=== PATIENT | male | born 1955 | race Caucasian/White ===

== ENCOUNTER 2025-05-08 12:13 | Emergency (ER) | payer MEDICARE, SELFPAY ==
[2025-05-08 13:11] VITALS: BP 138/61; PULSE 88; RESP 18; TEMP 37.7; O2SAT 96; BMI 23.0
--- NOTE | 2025-05-08 13:18 | ED.SKABFB ---
HPI - Skin/Abscess/Foreign Bdy <Arlette Dorado PA-C - Last Filed: 05/08/25 21:25> General Chief complaint: Skin/Abscess/Foreign Body Stated complaint: sent from [facility] for rash, fever, no appetite Time Seen by Provider: 05/08/25 13:17 Source: patient Mode of arrival: Ambulatory Limitations: no limitations History of Present Illness HPI narrative: This is a 69-year-old patient with a history of asthma which he reports as adult onset, presenting to the ER after he was sent by walk-in clinic with concern for a nearly full body pruritic rash and fevers. Patient and his state that he developed a mild subtle rash on his calves about a week ago. They thought little of this, states she thought it could have been heat rash as they bicycle a lot and he sometimes gets mild rashes on his lower legs. Then 2 days ago the rash started to spread and yesterday became quite prominent affecting his lower extremities/thighs and by this morning had spread to his chest and back. He states the rash is very itchy but he is doing his best not to scratch it. He states that for the last couple of days he is felt extremely fatigued and generally ?unwell?. states that he has had no appetite for about the past day. He endorses he has been having some nausea but no vomiting or diarrhea. Patient notes in the last couple of days as they have been visiting the area he has been crabbing with friends and states he has gotten a lot of salt water on his legs and patient states that he has also eaten crab multiple times recently but not for a the last couple of days. He acknowledges that last year when he was up here crabbiing he also had a period where he was feeling similarly unwell but at that time did not have a rash. They also note that he went about 2 years without eating any gluten due to concern that he might have a gluten allergy and in the past week he just began eating foods with gluten again. Additionally patient notes that he has had some irritation/discomfort of his esophagus the last couple of nights which he attributes to swallowing his vitamin-C pill without water in the evening before bed. He also states his throat has been a little sore the last couple of days and acknowledges he had strep infection ?a lot? when he was younger. He also states that he has had a mild cough which is chronic for him. And that he changed from Symbicort medication to Wixela generic about 4-6 weeks ago due to an insurance change. Additionally patient notes that about a month ago and again in the past week or so he is noticed if he is leaning forward doing [employer] project he sometimes feels like his chest feels ?congested? and it affects his breathing. Last night patient developed high fevers up to 102.2, combined with the worsening rash this morning this is what prompted them to seek evaluation. Patient endorses he already takes a antihistamine medication that is a generic version of Zyrtec on a daily basis. He notes he has had allergy testing done previously with a full panel and no allergies were found. He has no known allergies to shellfish/crustaceans or other foods. Patient denies other symptoms complaints or concerns including shortness of breath, wheezing, diarrhea, vomiting, abdominal pain, chills, syncope, throat swelling or difficulty swallowing. Related Data Home Medications ?Medication ?Instructions ?Recorded ?Confirmed albuterol sulfate 90 mcg/actuation 2 puff inhalation Q4H PRN wheezing 05/08/25 05/08/25 aerosol inhaler fluticasone 250 mcg-salmeterol 50 1 ea inhalation BID 05/08/25 05/08/25 mcg/dose blistr powdr for inhalation (Wixela Inhub) rosuvastatin 10 mg tablet 10 mg PO DAILY 05/08/25 05/08/25 rosuvastatin 5 mg tablet 5 mg PO DAILY 05/08/25 05/08/25 simethicone 125 mg chewable tablet mg PO 05/08/25 05/08/25 Previous Rx's ?Medication ?Instructions ?Recorded cephalexin 500 mg capsule 500 mg PO TID dermatitis/infection 05/08/25 7 days #21 caps epinephrine 0.3 mg/0.3 mL 0.3 mg (0.3 mL) IM Q5-15M PRN 05/08/25 injection, auto-injector anaphylaxis #2 ea prednisone 20 mg tablet 40 mg (2 x 20 mg) PO DAILY 05/08/25 Allergic reaction 5 days #10 tabs Allergies Allergy/AdvReac Type Severity Reaction Status Date / Time erythromycin base Allergy GI upset Verified 05/08/25 13:11 Review of Systems <Arlette Dorado PA-C - Last Filed: 05/08/25 21:25> Review of Systems Narrative: See HPI Patient History <Arlette Dorado PA-C - Last Filed: 05/08/25 21:25> Social History Smoking Status: Former smoker Smoking Status: Former smoker Exam <Arlette Dorado PA-C - Last Filed: 05/08/25 21:25> Narrative Exam Narrative: GENERAL: [69] year old patient appears stated age. Well-developed patient, in mild distress. Fatigued, unwell appearing. HEAD: Atraumatic. Normocephalic. EYES: There is very subtle edema present around patient's lateral eyes. Pupils equal round and reactive. Extraocular motions intact. No scleral icterus. No injection or drainage. ENT: Nose without bleeding, purulent drainage. Throat with moderate erythema with mild edema of the uvula, without tonsillar hypertrophy or exudate. Airway patent no angioedema noted on initial exam. No lymphadenopathy noted. NECK: Trachea midline. Non tender. No lymphadenopathy noted. CARDIOVASCULAR: Regular rate and rhythm without murmurs, gallops, or rubs. RESPIRATORY: Clear to auscultation. Breath sounds equal bilaterally. No wheezes, rales, or rhonchi. GASTROINTESTINAL: See skin Abdomen soft, non-tender, nondistended. EXTREMITIES: See skin No edema or joint tenderness. BACK: See skin Nontender without deformity or crepitance. No flank tenderness. NEURO: AOx3. SKIN: There is a near global scattered maculopapular brightly erythematous rash with patchy areas of lesions affecting the anterior and posterior thighs, they anterior posterior thorax largely sparing the arms and sparing the palms and soles as well as the face. There is no blistering present. Lesions are blanching. No petechia. They are pruritic, nontender, warm to the touch. No other rash or erythema of visible areas Initial Vital Signs Initial Vital Signs: Vital Signs Temperature 100 F H 05/08/25 13:11 Pulse Rate 88 05/08/25 13:11 Respiratory Rate 18 05/08/25 13:11 Blood Pressure 138/61 05/08/25 13:11 Pulse Oximetry 96 05/08/25 13:11 Oxygen Delivery Method Room Air 05/08/25 13:11 <Seferino Rico MD - Last Filed: 05/09/25 15:19> Initial Vital Signs Initial Vital Signs: Vital Signs Temperature 100 F H 05/08/25 13:11 Pulse Rate 88 05/08/25 13:11 Respiratory Rate 18 05/08/25 13:11 Blood Pressure 138/61 05/08/25 13:11 Pulse Oximetry 96 05/08/25 13:11 Oxygen Delivery Method Room Air 05/08/25 13:11 Course <Arlette Dorado PA-C - Last Filed: 05/08/25 21:25> Course Course Narrative: Did discuss this patient with the attending physician Dr. Rico; we reviewed labs, imaging and potential etiologies of his illness including discussion of possibility of very mild dress syndrome given his eosinophilia and very mild facial edema. Etiology of patient's symptoms is not entirely clear. Based on his normal vitals and strong possibility that his feeling unwell recently could be related in part to hyponatremia. At this point no indication for admission. We will treat with antihistamines and prednisone for symptomatic control have him follow up closely with PCP and seek re-evaluation if he is not improving or worsening. 1616 Patient did develop a fever again during his ER stay discussed patient again by phone with the attending who agrees with plan to treat with antibiotics in addition to the above plan. 1700 Orders Ordered: Discontinued Medications Acetaminophen (Acetaminophen 325 Mg Tablet) 975 mg PO NOW ONE Stop: 05/08/25 16:47 Last Admin: 05/08/25 16:48 Dose: 975 mg Documented By: DANNA Famotidine (Famotidine 20 Mg/2 Ml Vial) 20 mg IV NOW MANE Last Admin: 05/08/25 17:13 Dose: 20 mg Documented By: DANNA Lactated Ringer's (Lactated Ringers) 500 mls @ 1,000 mls/hr IV BOLUS ONE Stop: 05/08/25 15:17 Last Infusion: 05/08/25 15:40 Dose: Infused Documented By: Admin: 05/08/25 15:11 Dose: 1,000 mls/hr Documented By: DANNA Ondansetron HCl (Ondansetron 4 Mg/2 Ml Inj) 4 mg IV NOW ONE Stop: 05/08/25 14:57 Last Admin: 05/08/25 16:53 Dose: Not Given Documented By: DANNA Prednisone (Prednisone 20 Mg Tablet) 40 mg PO NOW ONE Stop: 05/08/25 16:58 Last Admin: 05/08/25 17:13 Dose: 40 mg Documented By: DANNA Vital Signs Vital signs: Vital Signs - 8 hr 05/08/25 15:39 05/08/25 16:29 05/08/25 18:21 Temperature 101.8 F H 100.2 F H Pulse Rate 89 90 88 Respiratory Rate 18 16 16 Blood Pressure 127/68 138/83 112/55 L Pulse Oximetry 98 96 98 Oxygen Delivery Method Room Air Room Air Room Air <Seferino Rico MD - Last Filed: 05/09/25 15:19> Orders Ordered: Discontinued Medications Acetaminophen (Acetaminophen 325 Mg Tablet) 975 mg PO NOW ONE Stop: 05/08/25 16:47 Last Admin: 05/08/25 16:48 Dose: 975 mg Documented By: DANNA Famotidine (Famotidine 20 Mg/2 Ml Vial) 20 mg IV NOW MANE Last Admin: 05/08/25 17:13 Dose: 20 mg Documented By: DANNA Lactated Ringer's (Lactated Ringers) 500 mls @ 1,000 mls/hr IV BOLUS ONE Stop: 05/08/25 15:17 Last Infusion: 05/08/25 15:40 Dose: Infused Documented By: Admin: 05/08/25 15:11 Dose: 1,000 mls/hr Documented By: DANNA Ondansetron HCl (Ondansetron 4 Mg/2 Ml Inj) 4 mg IV NOW ONE Stop: 05/08/25 14:57 Last Admin: 05/08/25 16:53 Dose: Not Given Documented By: DANNA Prednisone (Prednisone 20 Mg Tablet) 40 mg PO NOW ONE Stop: 05/08/25 16:58 Last Admin: 05/08/25 17:13 Dose: 40 mg Documented By: DANNA Vital Signs Vital signs: Vital Signs - 8 hr 05/08/25 15:39 05/08/25 16:29 05/08/25 18:21 Temperature 101.8 F H 100.2 F H Pulse Rate 89 90 88 Respiratory Rate 18 16 16 Blood Pressure 127/68 138/83 112/55 L Pulse Oximetry 98 96 98 Oxygen Delivery Method Room Air Room Air Room Air MDM - Skin/Abscess/Foreign Bdy <Arlette Dorado PA-C - Last Filed: 05/08/25 21:25> Differential Diagnosis Differential diagnosis: Likely viral exanthem, urticaria, allergic reaction to drug, contact dermatitis and other (allergic reaction to food, hyponatremia, eosinophilia) Lab Data Attestation: I reviewed the patient's lab results. Lab results narrative: Patient has an eosinophilia with low lymphocytes. No notable leukocytosis. Sodium is moderately low at 130. Lactate is unremarkable. ALT is very slightly elevated at 63. Viral testing for COVID flu A/B and RSV returned negative. As does rapid strep test. Platelets within normal limits. BNP is slightly elevated at 235. Troponin is not elevated. There is some proteinuria but no evidence of UTI. 05/08/25 14:52 05/08/25 14:52 Labs: Lab Results 05/08/25 05/08/25 05/08/25 Range/Units 14:52 15:07 15:19 WBC 11.6 H (4.5-11.0) X10^3/uL RBC 4.45 L (4.5-5.9) X10^6/uL Hgb 14.4 (13.5-17.5) g/dL Hct 42.1 (41-53) % MCV 94.6 (80-100) fL MCH 32.4 (26-34) PG MCHC 34.3 (30-36) % RDW 14.8 (11.6-14.8) % Plt Count 216 (150-400) X10^3/uL Neut % (Auto) 65.8 (50-75) % Lymph % (Auto) 8.9 L (25-40) % [facility] % (Auto) 7.5 (3-14) % Eos % (Auto) 17.5 H (2-4) % Baso % (Auto) 0.3 (0-2) % Neut # (Auto) 7600 H (7675-2457) /uL Lymph # (Auto) 1000 L (1190-2554) /uL [facility] # (Auto) 900 (0-900) /uL Eos # (Auto) 2000 H (0-450) /uL Baso # (Auto) 0 (0-100) /uL APTT 28 (25.1-36.5) SECONDS Sodium 130 L (137-145) mmol/L Potassium 4.6 (3.4-5.1) mmol/L Chloride 95 L (98-107) mmol/L Carbon Dioxide 28 (22-32) mmol/L BUN 16 (9-20) mg/dL Creatinine 0.92 (0.66-1.25) mg/dL Estimated GFR > 60 (>60) mL/min BUN/Creatinine Ratio 17.4 (6-22) Glucose 113 H (70-99) mg/dL Lactate 1.3 (0.7-2.1) mmol/L Calcium 8.7 (8.4-10.2) mg/dL Total Bilirubin 0.7 (0.2-1.3) mg/dL AST 46 (17-59) IU/L ALT 63 H (<50) IU/L Alkaline Phosphatase 117 (38-126) U/L Total Creatine Kinase 33 L (55-170) U/L Troponin I < 0.012 (0.01-0.034) ng/mL NT-Pro-B Natriuret Pep 235 H (<125) pg/mL Total Protein 7.3 (6.3-8.2) g/dL Albumin 4.0 (3.5-5.0) g/dL Globulin 3.3 (1.7-4.1) g/dL Albumin/Globulin Ratio 1.2 (1.0-2.8) Procalcitonin 0.203 (<0.5) ng/mL Ur Bilirubin Confirm Negative (Negative) Urine RBC 0-1/hpf (0-5/HPF) Urine WBC 0-1/hpf (0-5/HPF) Ur Squamous Epith Cells 0-1 /hpf (0-5/HPF) Urine Bacteria Occasional (0-1) (None) Urine Mucus 3+ H (Negative) Ur Culture Indicated? Cult not indicated Vol Urine Centrifuged 10ml (spun) SARS-CoV-2 (PCR) Negative (Negative) Influenza A (RT-PCR) Flu a negative (NEGATIVE) Influenza B (RT-PCR) Flu b negative (NEGATIVE) RSV (PCR) Negative (Negative) Group A Strep (PCR) Negative (Negative) Urine Dip Bedside Urine Glucose Negative Bedside Urine Bilirubin + 1 Bedside Urine Ketone + 15 Urine Specific [place] 1.020 Bedside Urine Occult Blood - Negative Bedside Urine pH 6.0 Bedside Urine Protein ++ 100 Bedside Urine Urobilinogen - Negative Bedside Urine Nitrite - Negative Bedside Urine Leukocytes - Negative Esterase Imaging Data Chest x-ray: My Impression: Agree with Radiology interpretation Radiologist's Impression: [address] [id number] XRay Report Signed Patient: Gavino Adkins MR#: [id number] : 1955 Acct:[id number] Age/Sex: 69 / M Date of Service: 05/08/25 Loc: ED Accession Number: [id number] Procedure: XR chest 2V Ordering Provider: Arlette Dorado PA-C PROCEDURE: XR CHEST 2V INDICATIONS: chest congestion positional TECHNIQUE: 2 views of the chest were acquired. COMPARISON: None. FINDINGS: Surgical changes and devices: None. Lungs and pleura: An incomplete inspiratory result is noted, causing a crowded appearance to the lung markings. No focal infiltrates are seen. Mild generalized interstitial prominence can be seen. No pneumothorax or significant pleural effusions are seen. Mediastinum: Mediastinal contours are normal. Heart size is normal. Bones and chest wall: No suspicious bony abnormalities. Age-appropriate bony degenerative changes are seen. Soft tissues appear unremarkable. IMPRESSION: Low lung volumes with mild interstitial prominence. Artifact is suspected, although differential diagnosis includes mild pulmonary edema versus atypical/viral infection. Dictated by: Luke Driscoll M.D. on 05/08/2025 at 14:09 Approved by: Luke Driscoll M.D. on 05/08/2025 at 14:10 ECG Data Attestation: I personally reviewed and interpreted this ECG as follows: Interpretation: Heart rate 91, normal sinus rhythm--no ST elevation or depression noted. QTC 413 milliseconds; no ectopy. [facility] Narrative Medical decision making narrative: This ill appearing 69-year-old male with a history of asthma presented to the ER with concern for global rash worsening since yesterday and generalized fatigue/feeling unwell for 2 days. Multiple potential etiologies for patient's symptoms including viral illness, atypical allergic reaction/eosinophilic reaction, mild DRESS syndrome, contact dermatitis with bacterial infection. While he was not tachycardic or tachypneic, he presented ill-appearing and some concern initially for sepsis and a workup was pursued to include CBC CMP, lactate, urine, chest x-ray, cardiac labs, EKG, blood cultures, throat culture and rapid strep test, testing for common viruses. Patient did receive a fluid bolus initially. [place] slightly improved after this. He did have a hyponatremia with sodium of 130. Which possibly explains some of his recent fatigue. During the course of his ER stay he developed recurrent fever up to 102.2 which was treated with Tylenol successfully. Additionally he developed some mild edema of his upper lip only with no tongue swelling or swelling of the posterior oropharynx or respiratory symptoms/GI. Given duration of his complaint with rash developing up to 1 week ago, worsening yesterday and more severe this morning unlikely his symptoms represent a true anaphylactic reaction however given he has eosinophilia a near global skin rash and recent exposure to crab with report of previously feeling ill after eating it last year, as well as recent reintroduction of gluten to his diet after 2 years gluten free certainly atypical allergic reaction is highly likely. He does have some symptoms that could be consistent with mild DRESS syndrome however his only medication change was from Symbicort to Wixela approximately 4-6 weeks ago. This is not noted to be a medication that would typically triggered DRESS. Patient did not have an elevated lactate or notable leukocytosis. Did discuss the patient with the attending physician who agreed with plan for steroids, antihistamines. Ultimately decision to also prescribe antibiotics given patient's recurrence of fever. I think it is possible that patient's fever is 2nd to systemic reaction rather than infectious process however the rash on his body particularly of his size is brightly erythematous and possibly concerning for a bacterial infectious process. Patient was monitored in the ER as results returned and symptoms changed. He did receive prednisone 40 mg oral as well as famotidine 20 mg IV in addition to fluids. His chest x-ray was suspicious for artifact versus mild pulmonary edema or viral pneumonia. BNP was slightly elevated. Counseled the patient and his regarding monitoring for symptoms that would suggest anaphylaxis/severe allergic reaction. An EpiPen was prescribed today. Additionally counseled the patient regarding new or worsening symptoms including persistent/high fevers, worsening of the rash, developing blistering or sloughing skin, increasing fatigue or malaise, diarrhea/vomiting, confusion; and patient was advised to have a very low threshold for returning to the emergency department or calling 911 with new or persistent symptoms. Advised continue famotidine in addition to his regular Zyrtec generic. Consider Benadryl topical and or oral for itching symptoms/rash noting to use care for oral Benadryl as it can be sedating. Prescription for prednisone for 5 day course with initial 40mg admin in ED. Advised avoid all seafood/shellfish containing foods and all gluten foods for the time being as trigger for his symptoms is unclear and highly suspicious for an atypical allergic reaction. Recommend following up with PCP as well as allergy/embedded software developer Recommended fluid intake including electrolyte containing fluids such as Pedialyte as well as increasing food intake to work on improving his hyponatremia. Prescription for cephalexin due to concern for possible skin infection. Blood cultures pending and throat culture pending at time of discharge. Return precautions provided, follow-up plan discussed, all questions answered. <Seferino Rico MD - Last Filed: 05/09/25 15:19> Lab Data Labs: Lab Results 05/08/25 05/08/25 05/08/25 Range/Units 14:52 15:07 15:19 WBC 11.6 H (4.5-11.0) X10^3/uL RBC 4.45 L (4.5-5.9) X10^6/uL Hgb 14.4 (13.5-17.5) g/dL Hct 42.1 (41-53) % MCV 94.6 (80-100) fL MCH 32.4 (26-34) PG MCHC 34.3 (30-36) % RDW 14.8 (11.6-14.8) % Plt Count 216 (150-400) X10^3/uL Neut % (Auto) 65.8 (50-75) % Lymph % (Auto) 8.9 L (25-40) % [facility] % (Auto) 7.5 (3-14) % Eos % (Auto) 17.5 H (2-4) % Baso % (Auto) 0.3 (0-2) % Neut # (Auto) 7600 H (1240-4615) /uL Lymph # (Auto) 1000 L (8676-5586) /uL [facility] # (Auto) 900 (0-900) /uL Eos # (Auto) 2000 H (0-450) /uL Baso # (Auto) 0 (0-100) /uL APTT 28 (25.1-36.5) SECONDS Sodium 130 L (137-145) mmol/L Potassium 4.6 (3.4-5.1) mmol/L Chloride 95 L (98-107) mmol/L Carbon Dioxide 28 (22-32) mmol/L BUN 16 (9-20) mg/dL Creatinine 0.92 (0.66-1.25) mg/dL Estimated GFR > 60 (>60) mL/min BUN/Creatinine Ratio 17.4 (6-22) Glucose 113 H (70-99) mg/dL Lactate 1.3 (0.7-2.1) mmol/L Calcium 8.7 (8.4-10.2) mg/dL Total Bilirubin 0.7 (0.2-1.3) mg/dL AST 46 (17-59) IU/L ALT 63 H (<50) IU/L Alkaline Phosphatase 117 (38-126) U/L Total Creatine Kinase 33 L (55-170) U/L Troponin I < 0.012 (0.01-0.034) ng/mL NT-Pro-B Natriuret Pep 235 H (<125) pg/mL Total Protein 7.3 (6.3-8.2) g/dL Albumin 4.0 (3.5-5.0) g/dL Globulin 3.3 (1.7-4.1) g/dL Albumin/Globulin Ratio 1.2 (1.0-2.8) Procalcitonin 0.203 (<0.5) ng/mL Ur Bilirubin Confirm Negative (Negative) Urine RBC 0-1/hpf (0-5/HPF) Urine WBC 0-1/hpf (0-5/HPF) Ur Squamous Epith Cells 0-1 /hpf (0-5/HPF) Urine Bacteria Occasional (0-1) (None) Urine Mucus 3+ H (Negative) Ur Culture Indicated? Cult not indicated Vol Urine Centrifuged 10ml (spun) SARS-CoV-2 (PCR) Negative (Negative) Influenza A (RT-PCR) Flu a negative (NEGATIVE) Influenza B (RT-PCR) Flu b negative (NEGATIVE) RSV (PCR) Negative (Negative) Group A Strep (PCR) Negative (Negative) Urine Dip Bedside Urine Glucose Negative Bedside Urine Bilirubin + 1 Bedside Urine Ketone + 15 Urine Specific [place] 1.020 Bedside Urine Occult Blood - Negative Bedside Urine pH 6.0 Bedside Urine Protein ++ 100 Bedside Urine Urobilinogen - Negative Bedside Urine Nitrite - Negative Bedside Urine Leukocytes - Negative Esterase Discharge Plan Departure Patient Disposition: Home Clinical Impression: Rash, Hyponatremia Allergic reaction Qualifiers: Encounter type: initial encounter Qualified Code(s): T78.40XA - Allergy, unspecified, initial encounter Contact dermatitis Qualifiers: Contact dermatitis type: allergic Contact dermatitis trigger: unspecified trigger Qualified Code(s): L23.9 - Allergic contact dermatitis, unspecified cause Activity Restrictions/Additional Instructions: *You have been diagnosed with [allergic reaction, dermatitis/skin infection, hyponatremia ] *What to do: *Please continue to take your regular medications as directed. [2 ] New medication prescriptions sent to your pharmacy: [EpiPen prescription for anaphylaxis, prednisone anti-inflammatory] [ ] New medication written as a paper prescription [ ] No new medications given *Please follow up with your primary care provider in 2-3 days, call for an appointment. Let them know you were seen in the Emergency Department and that we ask that you be seen in follow up. We will electronically transmit a record of today's note if your PCP is in our system. You came in today feeling unwell with a rash that came on yesterday and worsened to cover much of your body. The rash is atypical appearing for an allergic reaction however I do believe after we gathered information that most likely your symptoms are largely due to a histamine reaction/allergic reaction. The source is not completely clear however you have recently been exposed to salt water, crab protein and also recently restarted eating gluten after multiple years off of gluten. You had some lip swelling develop while you were in the ER and you also had some swelling around your eyes. These are likely related to her allergic reaction. Based on the timing of your symptoms and the gradual progression over the last day your reaction does not appear to be a ?anaphylactic? reaction, however I did prescribe an epinephrine pen for you as I do think that there is a risk you could have an anaphylactic type reaction in the future if you are reexpose to your allergen trigger. You did change to a generic version of your inhaler medication about 4 weeks ago however I think this is probably unlikely to be the cause of your symptoms/less likely that you are having a medication allergic reaction. Your sodium levels were noted to be low today, this could be because you have not been eating and drinking as much in the last day. It was important that you hydrate make sure your getting fluids with electrolytes in the a.m. and do try to eat as well to improve your sodium levels. We did give you fluids in the emergency department today as well as antihistamine and anti-inflammatory medication. If your symptoms suddenly worsen make sure that you call 911, if you are concerned that you are having anaphylactic reaction please use your EpiPen that I am prescribing today and call 911. I would like you to stop eating gluten again for the time being and also stop eating crab/shellfish until you are able to see an hospital housekeeper and have a better sense of what could be causing your symptoms. Because your rash appears to be a dermatitis type rash/possibly allergic reaction type rash and is somewhat concerning for an infectious process, as well as the fact that you had some fevers last night and today I also prescribed antibiotics. Please take these as prescribed for the full course. Some of your labs including a throat culture as well as blood cultures are still pending. If these come back abnormal you will be contacted. You can also use Benadryl to help with itching symptoms from the rash but most importantly do take regular daily antihistamine (Zyrtec) to help reduce your histamine levels. You can also consider taking famotidine daily as well (Pepcid) orally. Please make sure that there is somebody with you for the next 24 hours in case your symptoms suddenly worsen. I hope that you are feeling better soon. *If you do not have a primary care provider please contact the [facility] Resource line at [phone]. They will ask some questions about your medical history and help get you set up with a doctor in the community. *Return to Emergency Department if you should have any new, worsening or concerning symptoms, such as [fever greater than 101 F, shaking chills, worsening pain, persistent vomiting or other bothersome symptoms] Prescriptions: New epinephrine 0.3 mg/0.3 mL auto-injector 0.3 mg IM Q5-15M PRN (Reason: anaphylaxis) Qty: 2 0RF Rx Instructions: do not exceed 3 doses per episode prednisone 20 mg tablet 40 mg PO DAILY 5 Days Qty: 10 0RF cephalexin 500 mg capsule 500 mg PO TID 7 Days Qty: 21 0RF No Action fluticasone propion-salmeterol [Wixela Inhub] 250-50 mcg/dose blister with device 1 ea inhalation BID simethicone 125 mg tablet,chewable PO albuterol sulfate 90 mcg/actuation HFA aerosol inhaler 2 puff inhalation Q4H PRN (Reason: wheezing) rosuvastatin 5 mg tablet 5 mg PO DAILY rosuvastatin 10 mg tablet 10 mg PO DAILY Referrals: Miscellaneous,Doctor, [Primary Care Provider, Medical] Stand Alone Forms: Patient Portal/API ED Sign-out <Seferino Rico MD - Last Filed: 05/09/25 15:19> Cosign ED Attending Cosantoniaature Attestation: I was readily available for consultation at all times and reviewed case and plan of care prior to pt's dismissal.. I agree with assessment and plan of care
--- NOTE | 2025-05-08 14:44 | DI.RAD.S_ITS ---
PROCEDURE: XR CHEST 2V INDICATIONS: chest congestion positional TECHNIQUE: 2 views of the chest were acquired. COMPARISON: None. FINDINGS: Surgical changes and devices: None. Lungs and pleura: An incomplete inspiratory result is noted, causing a crowded appearance to the lung markings. No focal infiltrates are seen. Mild generalized interstitial prominence can be seen. No pneumothorax or significant pleural effusions are seen. Mediastinum: Mediastinal contours are normal. Heart size is normal. Bones and chest wall: No suspicious bony abnormalities. Age-appropriate bony degenerative changes are seen. Soft tissues appear unremarkable. IMPRESSION: Low lung volumes with mild interstitial prominence. Artifact is suspected, although differential diagnosis includes mild pulmonary edema versus atypical/viral infection. Dictated by: Luke Driscoll M.D. on 05/08/2025 at 14:09 Approved by: Luke Driscoll M.D. on 05/08/2025 at 14:10
[2025-05-08 15:06] LABS: Add Manual Diff / Slide Review NO; Hematocrit 42.1 % (41-53); Hemoglobin 14.4 g/dL (13.5-17.5); Lymphocytes Absolute Auto 1000 /uL (1100-4500); Mean Corpuscular HGB Conc 34.3 % (30-36); Mean Corpuscular Hemoglobin 32.4 PG (26-34); Mean Corpuscular Volume 94.6 fL (80-100); Platelet Count 216 X10^3/uL (150-400)
[2025-05-08] MEDS: LACTATED RINGERS 500 ML 1000 ML IV (15:11)
[2025-05-08 15:13] LABS: PTT Partial Thromboplastin Tim 28 SECONDS (25.1-36.5)
[2025-05-08 15:14] LABS: Ictotest Urine Negative (Negative)
[2025-05-08 15:16] LABS: Alanine Aminotransferase 63 IU/L (<50); Albumin 4.0 g/dL (3.5-5.0); Albumin Globulin Ratio 1.2 (1.0-2.8); Alkaline Phosphatase 117 U/L (38-126); Blood Urea Nitrogen 16 mg/dL (9-20); Calcium 8.7 mg/dL (8.4-10.2); Carbon Dioxide 28 mmol/L (22-32); Chloride 95 mmol/L (98-107); Creatine Kinase 33 U/L (55-170); Estimated Glomerular Filt Rate > 60 mL/min (>60); Globulin 3.3 g/dL (1.7-4.1); Glucose 113 mg/dL (70-99); HEMOLYSIS < 15 (0-50); Potassium 4.6 mmol/L (3.4-5.1); Sodium 130 mmol/L (137-145); Total Protein 7.3 g/dL (6.3-8.2)
[2025-05-08 15:17] LABS: Lactate (Lactic Acid) 1.3 mmol/L (0.7-2.1)
[2025-05-08 15:18] LABS: Strep Grp A by PCR Rapid Negative (Negative)
[2025-05-08 15:24] LABS: Culture Indicated Urine Cult Not Indicated
[2025-05-08 15:28] LABS: NT-proBNP (BNP-Adult 18+) 235 pg/mL (<125); Troponin I < 0.012 ng/mL (0.01-0.034)
[2025-05-08 15:33] LABS: Procalcitonin 0.203 ng/mL (<0.5)
[2025-05-08 15:39] VITALS: BP 127/68; PULSE 89; RESP 18; O2SAT 98
--- NOTE | 2025-05-08 15:51 | EKG_ITS ---
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
[2025-05-08 16:03] LABS: Influenza A - CEPHEID Flu A NEGATIVE (NEGATIVE); Influenza B - CEPHEID Flu B NEGATIVE (NEGATIVE)
[2025-05-08 16:10] LABS: COVID-19 CEPHEID 4-PLEX PCR Negative (Negative)
[2025-05-08 16:29] VITALS: BP 138/83; PULSE 90; RESP 16; TEMP 38.8; O2SAT 96
[2025-05-08] MEDS: ACETAMINOPHEN 325 MG TABLET 975 MG PO (16:48)
[2025-05-08] MEDS: FAMOTIDINE 20 MG/2 ML VIAL IV (17:13)
[2025-05-08 18:21] VITALS: BP 112/55; PULSE 88; RESP 16; TEMP 37.9; O2SAT 98
== END 2025-05-08 18:22 | disposition home or self-care (01) ==
PROVIDERS: Emergency Provider Student in an Organized Health Care Education/Training Program
DX: L23.9 Allergic contact dermatitis, unspecified cause (principal); E87.1 Hypo-osmolality and hyponatremia; R21 Rash and other nonspecific skin eruption
CPT/HCPCS: 36415; 71046; 80053; 81003; 81015; 82550; 83605; 83880; 84145; 84484; 85025; 85730; 87070; 87637; 87651; 93005; 96374; 99284; J2405